=== PATIENT | female | born 1965 | race Caucasian/White ===

== ENCOUNTER 2024-02-09 17:53 | Outpatient (CLI) | payer OTHER, SELFPAY | END 2024-02-09 17:54 | disposition home or self-care (01) | LOC: AMB 03-05 03:25 | PROVIDERS: PCP Physician Assistant; Visit Provider Student in an Organized Health Care Education/Training Program | DX: R41.82 Altered mental status, unspecified (principal) | CPT/HCPCS: A0425; A0427 ==